=== PATIENT | female | born 1985 | race Caucasian/White ===

== ENCOUNTER 2023-10-27 11:05 | Outpatient (CLI) | payer BC, SELFPAY ==
[2023-10-27 09:07] LABS: ESR 5 mm/hr (0-20)
[2023-10-27 09:08] LABS: Abs Immature Grans 0.01 10^3/uL (0.0-0.06); Absolute Basophil Count 0.02 10^3/uL (0.0-0.2); Absolute Eosinophil Count 0.17 10^3/uL (0.0-0.7); Absolute Lymphocyte Count 2.05 10^3/uL (1.2-3.4); Absolute Monocyte Count 0.54 10^3/uL (0.1-0.8); Absolute Neutrophil Count 4.81 10^3/uL (1.2-6.7); Basophils % 0.3 %; Eosinophils % 2.2 %; HCT 40.9 % (36.0-46.0); HGB 14.4 g/dL (11.2-15.7); Immature Grans % 0.1 %; MCH 31.6 pg (27.0-33.0); MCHC 35.2 % (32.0-36.0); MCV 90 fL (80-95); MPV 9.5 fL (8.0-11.0); Monocytes % 7.1 %; Neutrophils % 63.3 %; Platelet Count 238 10^3/uL (130-400); RBC 4.56 10^6/uL (3.93-5.22); RDW 11.3 % (11.7-14.6); RDW-SD 36.8 fL
[2023-10-27 10:03] LABS: Iron 125 ug/dL (50-170)
[2023-10-27 10:05] LABS: ALT 21 U/L (14-59); AST 16 U/L (15-37); Albumin 4.4 g/dL (3.4-5.0); Alkaline Phosphatase 50 U/L (46-116); Anion Gap 10.7 mmol/L (3-11); BUN 11 mg/dL (7-18); Bilirubin, Total 0.96 mg/dL (0.2-1.0); CO2 26.3 mmol/L (21.0-32.0); CREATININE 0.7 mg/dL (0.55-1.02); Calcium 9.4 mg/dL (8.5-10.1); Chloride 102 mmol/L (98-107); Estimated GFR 114.16 (mL/min/1.73m2); Glucose 97 mg/dL (74-106); Potassium 3.8 mmol/L (3.5-5.1); Sodium 139 mmol/L (136-145); Total Protein 8.4 g/dL (6.4-8.2)
[2023-10-27 10:38] LABS: Calculated LDL 158 mg/dL (<100); Cholesterol 234 mg/dL (<200); Ferritin 120 ng/mL (8-252); HDL Cholesterol 56 mg/dL (40-60); TSH 1.43 uIU/Ml (0.36-3.74); Triglyceride 104 mg/dL (<150); Vitamin B12 544 pg/mL (193-986); Vitamin D 25 Total 26.7 ng/mL (30-100)
[2023-10-27 11:06] LABS: FREE T4 0.94 ng/dL (0.76-1.46)
[2023-10-27 17:53] LABS: T3,Free 4.1 pg/mL (2.8-5.3)
[2023-10-27 19:02] LABS: Prolactin 2.8 ng/mL (See Note)
[2023-10-27 19:20] LABS: HIV-1/2 Ag & Ab Screen Negative (Negative)
[2023-10-27 19:43] LABS: Hepatitis C Ab w Rflx HCV PCR Negative (Negative)
[2023-10-29 09:28] LABS: Insulin 8.5 uIU/mL (<29.0)
[2023-11-04 09:26] LABS: Testosterone, Free 0.36 ng/dL (<0.13-1.00); Testosterone, Total 18 ng/dL (8-60)
[2023-11-05 17:04] LABS: Dehydroepiandrosterone (DHEA) 2.3 ng/mL (<10)
== END 2023-10-27 11:06 | disposition home or self-care (01) ==
LOC: LBO 11:08
PROVIDERS: PCP Nurse Practitioner Family; Visit Provider Student in an Organized Health Care Education/Training Program
DX: Z13.220 Encounter for screening for lipoid disorders (principal); L40.50 Arthropathic psoriasis, unspecified; Z11.4 Encounter for screening for human immunodeficiency virus [HIV]; R53.83 Other fatigue; R63.5 Abnormal weight gain; L65.9 Nonscarring hair loss, unspecified; E28.2 Polycystic ovarian syndrome; Z11.59 Encounter for screening for other viral diseases; I47.10 Supraventricular tachycardia, unspecified
CPT/HCPCS: 36415; 80053; 80061; 82306; 83519; 84402; 84403; 85652; 86803; 87389; 82607; 82626; 82728; 83525; 83540; 84146; 84439; 84443; 84481; 85025

== ENCOUNTER 2024-04-19 01:13 | Outpatient (CLI) | payer OTHER, SELFPAY ==
--- NOTE | 2024-04-19 07:00 | DI.US_ITS ---
Exam(s) US BREAST LT COMPLETE US BREAST RT COMPLETE MG MAMMO DIAGNOSTIC BI EXAM: MG MAMMO DIAGNOSTIC BI AND BILATERAL COMPLETE BREAST ULTRASOUND CLINICAL HISTORY: painful, lumpy breasts,breast discharge,mastalgia,n64.52,n64.4. TECHNIQUE: BILATERAL CC AND MLO mammographic images were obtained with 3D tomosynthesis technique an d utilizing computer aided detection (CAD). COMPLETE BILATERAL BREAST ULTRASOUND was performed including all 4 quadrants of both breasts as well as both axillary regions. COMPARISON: Prior mammograms were reviewed. FINDINGS: DIAGNOSTIC BILATERAL MAMMOGRAM: Fibroglandular tissue pattern is again noted be dense, this somewhat decreasing the sensitivity of th e mammogram for finding hidden underlying lesions. There are no obvious masses nor malignant-appearing microcalcification groups in either breast. [place] gn microcalcifications are noted bilaterally. There is no significant architectural distortion or skin thickening-retraction. BILATERAL COMPLETE BREAST ULTRASOUND: There is no evidence of solid or significant cystic lesions in all 4 quadrants of both breasts nor wi thin the retroareolar region. Scanning of the axillary regions is negative for significant adenopathy. IMPRESSION: 1. No radiographic evidence of malignancy. 2. Negative bilateral complete breast ultrasound The patient was informed of the findings and follow-up recommendations by myself prior to leaving the department today. BI-RADS Category 1 - Negative Breast Density - Category C - Heterogeneously dense Breast density Category C or D implies that the patient has dense breast tissue. Dense breast tissue can make it harder to find cancer on a mammogram. Dense breast tissue is also associated with an incr eased risk of breast cancer. This information about the result of the mammogram report was provided to the patient to raise their awareness. Use this report when you speak with the patient about their risks for breast cancer, which includes their family history. At that time, you may recommend additional screening tests (Ultrasoun d or MRI) as these tests may add significant information. A negative radiographic report should not delay biopsy if a dominant or clinically suspicious mass is present. Up to ten percent of cancers are not identified on mammography. A negative report may reinforce clinical impression. Adenosis and dense breasts may obscure an underlying neoplasm. False positive reports average 6 to 10%. Patient will receive a letter notifying them of these results.
== END 2024-04-19 01:33 ==
LOC: DI 01:13
PROVIDERS: PCP Nurse Practitioner Family; Visit Provider Nurse Practitioner Family
DX: N64.52 Nipple discharge (principal); N64.4 Mastodynia; Z12.31 Encounter for screening mammogram for malignant neoplasm of breast; R92.323 Mammographic fibroglandular density, bilateral breasts
CPT/HCPCS: 76642; 77062; 77066; G0279

== ENCOUNTER 2024-06-08 02:21 | Outpatient (CLI) | payer OTHER, SELFPAY ==
[2024-06-08 10:05] LABS: Abs Immature Grans 0.02 10^3/uL (0.0-0.06); Absolute Basophil Count 0.05 10^3/uL (0.0-0.2); Absolute Eosinophil Count 0.11 10^3/uL (0.0-0.7); Absolute Lymphocyte Count 2.25 10^3/uL (1.2-3.4); Absolute Monocyte Count 0.55 10^3/uL (0.1-0.8); Absolute Neutrophil Count 4.78 10^3/uL (1.2-6.7); Basophils % 0.6 %; Eosinophils % 1.4 %; HGB 14.1 g/dL (11.2-15.7); Immature Grans % 0.3 %; MCH 30.7 pg (27.0-33.0); MCHC 34.4 % (32.0-36.0); MCV 89 fL (80-95); MPV 9.7 fL (8.0-11.0); Monocytes % 7.1 %; Neutrophils % 61.6 %; Platelet Count 249 10^3/uL (130-400); RBC 4.59 10^6/uL (3.93-5.22); RDW 11.3 % (11.7-14.6); RDW-SD 36.2 fL; WBC 7.76 10^3/uL (4.4-10.8)
[2024-06-08 10:36] LABS: ALT 19 U/L (14-59); AST 15 U/L (15-37); Albumin 4.2 g/dL (3.4-5.0); Alkaline Phosphatase 53 U/L (46-116); Anion Gap 9.2 mmol/L (3-11); BUN 20 mg/dL (7-18); Bilirubin, Total 0.5 mg/dL (0.2-1.0); CO2 27.8 mmol/L (21.0-32.0); CREATININE 0.7 mg/dL (0.55-1.02); Calcium 9.7 mg/dL (8.5-10.1); Chloride 105 mmol/L (98-107); Estimated GFR 113.46 (mL/min/1.73m2); Glucose 103 mg/dL (74-106); Potassium 4.1 mmol/L (3.5-5.1); Sodium 142 mmol/L (136-145)
== END 2024-06-08 02:22 | disposition home or self-care (01) ==
LOC: LBO 02:21
PROVIDERS: PCP Nurse Practitioner Family; Visit Provider Student in an Organized Health Care Education/Training Program
DX: L40.50 Arthropathic psoriasis, unspecified (principal); R69 Illness, unspecified; Z79.899 Other long term (current) drug therapy
CPT/HCPCS: 36415; 80053; 85025

== ENCOUNTER 2024-10-02 19:12 | Outpatient (REF) | payer OTHER, SELFPAY ==
[2024-10-02 20:59] LABS: HCT 41.0 % (36.0-46.0); HGB 14.3 g/dL (11.2-15.7); MCH 30.4 pg (27.0-33.0); MCHC 34.9 % (32.0-36.0); MCV 87 fL (80-95); MPV 9.8 fL (8.0-11.0); Platelet Count 300 10^3/uL (130-400); RBC 4.71 10^6/uL (3.93-5.22); RDW 11.1 % (11.7-14.6); RDW-SD 35.7 fL; WBC 9.03 10^3/uL (4.4-10.8)
[2024-10-02 21:03] LABS: ESR 12 mm/hr (0-20)
[2024-10-02 21:45] LABS: ALT 23 U/L (14-59); AST 16 U/L (15-37); Albumin 4.2 g/dL (3.4-5.0); Alkaline Phosphatase 58 U/L (46-116); Anion Gap 10.4 mmol/L (3-11); BUN 10 mg/dL (7-18); Bilirubin, Total 0.5 mg/dL (0.2-1.0); CO2 27.6 mmol/L (21.0-32.0); Calcium 8.9 mg/dL (8.5-10.1); Chloride 102 mmol/L (98-107); Estimated GFR 117.75 (mL/min/1.73m2); Glucose 104 mg/dL (74-106); Magnesium 2.2 mg/dL (1.8-2.4); Potassium 4.0 mmol/L (3.5-5.1); Sodium 140 mmol/L (136-145); Total Protein 7.8 g/dL (6.4-8.2); Vitamin B12 504 pg/mL (193-986); Vitamin D 25 Total 25 ng/mL (30-100)
== END 2024-10-02 19:13 | disposition home or self-care (01) ==
LOC: LBN 19:12
PROVIDERS: PCP Nurse Practitioner Family; Visit Provider Nurse Practitioner Family
DX: G24.5 Blepharospasm (principal)
CPT/HCPCS: 80053; 82306; 85027; 85652; 82607; 83735

== ENCOUNTER 2024-10-10 02:12 | Outpatient (CLI) | payer OTHER, SELFPAY ==
--- NOTE | 2024-10-10 07:00 | DI.MRI_ITS ---
Exam(s) MR BRAIN WO/W EXAM: MR BRAIN WO/W CLINICAL HISTORY: eval pathology,eyelid twitch,? blepharospasm TECHNIQUE: Multiplanar multisequence MRI of the brain was performed. CONTRAST MATERIAL: IV Contrast: 15 mL of Dotarem contrast administered. COMPARISON: No exams were available for comparison FINDINGS: VENTRICLES AND EXTRA AXIAL SPACES: Normal in size and morphology for the patient's age. HEMORRHAGE: None. CEREBRAL PARENCHYMA: No focus of restricted diffusion to suggest acute infarct. No space-occupying lesion identified. MIDLINE SHIFT: None. BRAINSTEM/CEREBELLUM: Normal. CALVARIUM: Normal. ENHANCEMENT: No suspicious enhancement identified. VISUALIZED PARANASAL SINUSES/MASTOIDS: Clear. CHE[place]K OF RIVERA: Normal flow void. PITUITARY GLAND: Unremarkable. OTHER FINDINGS: IMPRESSION: Unremarkable MRI of the brain. DATA REPOSITORY:
[2024-10-10] MEDS: Gadoterate meglumine 20 ML SYRINGE IVP (11:22)
[2024-10-10] MEDS: Normal Saline Flush 10 ML SYR IVP (11:22)
== END 2024-10-10 02:32 ==
PROVIDERS: PCP Nurse Practitioner Family; Visit Provider Nurse Practitioner Family
DX: R25.3 Fasciculation (principal); G24.5 Blepharospasm
CPT/HCPCS: 70553

== ENCOUNTER 2025-01-03 03:30 | Outpatient (CLI) | payer OTHER, SELFPAY ==
[2025-01-03 08:29] LABS: Abs Immature Grans 0.01 10^3/uL (0.0-0.06); HCT 39.1 % (36.0-46.0); HGB 13.6 g/dL (11.2-15.7); Immature Grans % 0.1 %; MCH 30.6 pg (27.0-33.0); MCHC 34.8 % (32.0-36.0); MCV 88 fL (80-95); MPV 9.6 fL (8.0-11.0); Platelet Count 224 10^3/uL (130-400); RBC 4.45 10^6/uL (3.93-5.22); RDW 11.9 % (11.7-14.6); RDW-SD 38.0 fL; WBC 6.85 10^3/uL (4.4-10.8)
[2025-01-03 10:56] LABS: ALT 10 U/L (10-49); AST 16 U/L (<34); Albumin 4.6 g/dL (3.4-5.0); Alkaline Phosphatase 42 U/L (46-116); Anion Gap 6.5 mmol/L (3-11); BUN 15 mg/dL (9-23); Bilirubin, Total 0.60 mg/dL (0.2-1.2); CO2 26.5 mmol/L (20.0-31.0); Calcium 9.3 mg/dL (8.3-10.6); Chloride 107 mmol/L (98-107); Cholesterol 160 mg/dL (<200); Glucose 97 mg/dL (74-106); HDL Cholesterol 39 mg/dL (>40); Potassium 4.0 mmol/L (3.5-5.1); Sodium 140 mmol/L (136-145); Total Protein 7.8 g/dL (5.7-8.2)
[2025-01-03 10:57] LABS: TSH (W/Ref FT4) 1.10 uIU/mL (0.55-4.78)
[2025-01-03 10:58] LABS: Vitamin D 25 Total 69 ng/mL (30-100)
[2025-01-03 18:31] LABS: HBs Antibody, Quant >1000.0 mIU/mL (See Note); Hepatitis B Surface Antigen Negative (Negative)
== END 2025-01-03 03:31 | disposition home or self-care (01) ==
LOC: LBO 03:30
PROVIDERS: PCP Nurse Practitioner Family; Visit Provider Nurse Practitioner Family
DX: R53.83 Other fatigue (principal); E55.9 Vitamin D deficiency, unspecified; Z13.220 Encounter for screening for lipoid disorders; Z11.59 Encounter for screening for other viral diseases
CPT/HCPCS: 36415; 80053; 80061; 82306; 86704; 86706; 87340; 84443; 85025